=== PATIENT | female | born 1955 | race African-American/Black ===

== ENCOUNTER 2023-03-09 20:12 | Emergency (ER) | payer MEDICARE ==
[2023-03-09] MEDS ORDERED: hydrALAZINE 25 MG TAB ONE (20:55)
[2023-03-09] MEDS ORDERED: Acetaminophen 500 MG TAB ONE (20:55)
[2023-03-09] MEDS ORDERED: Ketorolac Tromethamine 30 MG (1 mL) VIAL ONE (21:03)
[2023-03-09 21:08] LABS: Hematocrit 38.3 % (34.9-44.5); Hemoglobin 12.7 g/dL (12.0-15.5); MDiff Complete? YES; Mean Corpuscular HGB CONC 33.2 g/dL (32.0-36.0); Mean Corpuscular Hemoglobin 30.6 pg (27.0-33.0); Mean Corpuscular Volume 92.3 fl (81.6-98.3); Mean Platelet Volume 11.9 fl (7.4-10.4); Platelet Count 233 10x3/uL (150-450); RBC Distribution Width 16.1 % (11.5-14.5); Red Blood Cell (RBC) Count 4.15 10x6/uL (3.90-5.03); White Blood Cell (WBC) Count 10.1 10x3/uL (3.5-10.5)
[2023-03-09 21:22] LABS: ALT (SGPT) 27 U/L (8-55); AST (SGOT) 24 U/L (5-34); Albumin 4.1 g/dL (3.4-4.8); Alkaline Phosphatase 91 U/L (40-110); Anion Gap 13 mmol/L (10-20); BUN (Urea Nitrogen) 9 mg/dL (9.8-20.1); Bilirubin, Total 0.5 mg/dL (0.2-1.2); Calc. Creatinine Clearance 0 mL/min (70-130); Calcium 9.6 mg/dL (7.8-10.44); Carbon Dioxide 25 mmol/L (23-31); Chloride 103 mmol/L (98-107); Estimated GFR 93; Globulin 3.9 g/dL (2.4-3.5); Glucose 97 mg/dL (80-115); Potassium 3.5 mmol/L (3.5-5.1); Sodium 137 mmol/L (136-145)
[2023-03-09 21:28] LABS: Troponin I 0.015 ng/mL (< 0.028)
[2023-03-09 21:33] LABS: Eosinophils 1 % (0-10); Lymphocytes 24 % (21-51); Monocytes 3 % (0-10); Neutrophil 69 % (42-75); Reactive Lymphocytes 3 % (0-10)
[2023-03-09 21:37] LABS: Large Platelets SLIGHT (None Seen); RBC Morph Comment Within Normal Limits
[2023-03-09 23:22] LABS: Troponin I Less than 0.010 ng/mL (< 0.028)
== END 2023-03-09 23:50 | disposition home or self-care (01) ==
LOC: CSHERS 20:12
DX: I10 Essential (primary) hypertension (principal)
CPT/HCPCS: 70450; 71045; 80053; 84484; 85025; 93005; 96372; J1885